=== PATIENT | male | born 1950 | race Caucasian/White ===

== ENCOUNTER → 2016-11-12 | Outpatient (CLI) | payer MEDICARE, BC ==
[2016-11-12 18:15] LABS: ANION GAP 8 MEQ/L (8-16); BLOOD UREA NITROGEN 14 MG/DL (7-18); CALCIUM LEVEL 8.4 MG/DL (8.8-10.2); CARBON DIOXIDE LEVEL 27 MEQ/L (21-32); CHLORIDE LEVEL 106 MEQ/L (98-107); CREATININE FOR GFR 0.97 MG/DL (0.70-1.30); GLOMERULAR FILTRATION RATE > 60.0 (>49); GLUCOSE, FASTING 148 MG/DL (80-110); POTASSIUM SERUM 4.3 MEQ/L (3.5-5.1); SODIUM LEVEL 141 MEQ/L (136-145)
== END ==
LOC: M LAB 15:49
PROVIDERS: ATTEND Ophthalmology
DX: H02.423 Myogenic ptosis of bilateral eyelids (principal); H02.832 Dermatochalasis of right lower eyelid; H02.835 Dermatochalasis of left lower eyelid; F17.200 Nicotine dependence, unspecified, uncomplicated

== ENCOUNTER 2018-08-29 15:01 | Outpatient (RCR) | payer MEDICARE, OTHER ==
--- NOTE | 2018-08-15 15:30 | CARECAPL ---
Assessment Account #s: Initial Assessment General Diagnoses: Stent, CHF (ef less than 35%) Date of event: Sep 13, 2017 Physician: RADHA LANE MD Date Entered Program: Aug 15, 2018 Risk strat for cardiac event: High Exercise Date: Aug 15, 2018 Assessment: Initial Assessment Exercise Prescription Plan to educate provide educations about cardiac risk factors and to provide a monitored exercise program to build endurance Modalities initiated: Treadmill (1.5/0.0 RPE 3 mts 2.15), Cardio-Strider (will add), Nustep (level 2, RPE 2.5 mts 2.70), Arm Aerometer (1.0 RPE 3.5 mts 2.00), Dumbells (will add), Recumbent Bike (will add) Frequency: 2-3 Duration (Minutes) 30-60 minutes total exercise a day. 8-10 work intervals in minutes. rest intervals in minutes. Functional Capacity Goal Sustained Metabolic Equivalent of a task (MET) goal of 4.75-5.0 for 15-20 minutes. Intensity: 3-Moderate Progression (METS) Increase by: 0.5 METS every: 2 sessions Angina with ex: No Target Heart Rate rest + 35-40 Resistance Training: Yes Reps: 6-8 Hypertension: Yes Hypertension controlled with: Medication Resting 136/71 Peak Exercise BP 140/80 Meds see below Medications Scheduled Ascorbic Acid (Vitamin C), 1 CAP PO BID, (Reported) Atorvastatin Calcium (Atorvastatin Calcium), 40 MG PO DAILY, (Reported) Budesonide/Formoterol (Symbicort 160-4.5 Mcg/Act), 2 PUFF INH BID, (Reported) Carvedilol (Carvedilol), 3.125 MG PO BID, (Reported) Cholecalciferol (Vitamin D-3), 5,000 UNIT PO DAILY, (Reported) Clopidogrel Bisulfate (Plavix), 75 MG PO DAILY, (Reported) Furosemide (Furosemide), 20 MG PO DAILY, (Reported) Multivitamins (Multivitamin Adults), 1 TAB PO DAILY, (Reported) Sacubitril/Valsartan (Entresto 24-26 mg), 1 TAB PO BID, (Reported) Spironolactone (Spironolactone), 25 MG PO DAILY, (Reported) Target Goals Individual exercise Rx (1) BP 140/90 or 130/80 if DM or CKD (1) Aerobic active 30+min 5 days per week (1) Nutrition Date: Aug 15, 2018 Assessment: Initial Assessment Lipids Total Cholesterol (140), High Density Lipids (HDL) (81), Low Density Lipids (LDL) (43), Triglycerides (79) Lipid- med/supplement atorvatatin Diabetes Diabetes: No Weight Management Weight (lbs): 200.2 Height (inches): 66 Waist Circumference (Inches): 46 BMI: 32.3 Weight goal: 175 Special Diet: low salt, mediteranean diet, low-fat Alcohol: none Diet Access Tool: Rate your plate Score: 69 Intervention Leaf Sucker Operator Consult: Yes Nurse/patient discussion: Yes Education Relate Diabetes in CAD, Eating Healthy Target goal LDL-C<100 if triglycerides are >200 Non-HDL-C should be <130 (1) LDL-C<70 for high risk patients (4) HbA1c<7% (1) BMI<25 Waist cir<40in M/<35in F (1) Education Date: Aug 15, 2018 Assessment: Initial Assessment Knowledge Test Score: 9 Quit: >6 months Tobacco Use Smokeless tobacco: No Intervention Referral to smoking cessation: No Individual education and couns: No Tobacco Adjunct: No Education class schedule given: Yes Attended education classes: Yes Education: CAD, Risk factors, med compliance, cardiac A&P, Angina S/S, Sexuality Target Goals Complete cessation of tobacco use (1). Psychosocial Date: Aug 15, 2018 Assessment: Initial Assessment Psych Test (Initial/Discharge) Tool Used: CESD Score: 7 Intervention Physician Consult: No Physician Referral: No Stress Management Class: Yes Uses Stress Management Skills: Yes Education Education: Coping Techniques, S/S depression Target Goal Assess presence or absence of depression using a valid screening tool (1). Maximize coping skills (2). Positive support system (2). Patient/Program Goal Preventative Medication: Yes Aspirin, Yes Clopidogrel, Yes Beta blockade, Yes Statin/OTR lipid Lowering Fall Risk Assess: No Provider Assessment Session Number: 1 Provider Assessment: Proceed with Barbara Silva RN Aug 15, 2018 15:30
[~2018-08-29 15:01] MED LIST: ATOR40TA75 PO; CARV3.12 PO; ENTR1TAB PO; FURO20TA2 PO; MULT1TAB10 PO; PLAV1TAB2 PO; SPIR-10 PO; SYMB16INH INH; VITA200038 PO; VITA500C24 PO
--- NOTE | 2018-09-06 13:53 | CARECAPL ---
Assessment Account #s: Re-Assessment I General Diagnoses: Stent, CHF (Ef less than 35%) Date of event: Sep 13, 2017 Physician: RADHA LANE MD Date Entered Program: Aug 15, 2018 Risk strat for cardiac event: High Exercise Date: Sep 06, 2018 Assessment: Re-Assessment I Exercise Prescription Modalities initiated: Treadmill, Nustep, Arm Aerometer, Dumbells, Recumbent Bike Frequency: 2-3 Duration (Minutes) minutes total exercise a day. work intervals in minutes. rest intervals in minutes. Functional Capacity Goal Sustained Metabolic Equivalent of a task (MET) goal of for minutes. Intensity: 3-Moderate Progression (METS) Increase by: METS every: sessions Angina with ex: No Resistance Training: Yes Weight (pounds): 2 Reps: 6-8 Medications Scheduled Ascorbic Acid (Vitamin C), 1 CAP PO BID, (Reported) Atorvastatin Calcium (Atorvastatin Calcium), 40 MG PO DAILY, (Reported) Budesonide/Formoterol (Symbicort 160-4.5 Mcg/Act), 2 PUFF INH BID, (Reported) Carvedilol (Carvedilol), 3.125 MG PO BID, (Reported) Cholecalciferol (Vitamin D-3), 5,000 UNIT PO DAILY, (Reported) Clopidogrel Bisulfate (Plavix), 75 MG PO DAILY, (Reported) Furosemide (Furosemide), 20 MG PO DAILY, (Reported) Multivitamins (Multivitamin Adults), 1 TAB PO DAILY, (Reported) Sacubitril/Valsartan (Entresto 24-26 mg), 1 TAB PO BID, (Reported) Spironolactone (Spironolactone), 25 MG PO DAILY, (Reported) Current BP 110/70 Med Change: No Target Goals Individual exercise Rx (1) BP 140/90 or 130/80 if DM or CKD (1) Aerobic active 30+min 5 days per week (1) Nutrition Date: Sep 06, 2018 Assessment: Re-Assessment I Med Change: No Current Weight (pounds): 200.2 Education Eating Healthy Target goal LDL-C<100 if triglycerides are >200 Non-HDL-C should be <130 (1) LDL-C<70 for high risk patients (4) HbA1c<7% (1) BMI<25 Waist cir<40in M/<35in F (1) Education Date: Sep 06, 2018 Assessment: Re-Assessment I Intervention Education: CAD, Risk factors, med compliance, cardiac A&P, Angina S/S, Sexuality Target Goals Complete cessation of tobacco use (1). Psychosocial Date: Sep 06, 2018 Assessment: Re-Assessment I Education Education: Coping Techniques, S/S depression, Relaxation Techniques Target Goal Assess presence or absence of depression using a valid screening tool (1). Maximize coping skills (2). Positive support system (2). Provider Assessment Session Number: 4 Provider Assessment: No changes Barbara Lozano RN Sep 06, 2018 13:53
== END 2018-09-03 ==
LOC: M CR 15:01
PROVIDERS: ATTEND Internal Medicine Cardiovascular Disease
DX: Z98.61 Coronary angioplasty status (principal)

== ENCOUNTER 2018-09-26 15:01 | Outpatient (RCR) | payer MEDICARE, OTHER ==
--- NOTE | 2018-10-03 14:47 | CARECAPL ---
Assessment Account #s: Re-Assessment II General Diagnoses: Stent, CHF Date of event: Sep 21, 2017 Physician: RADHA LANE MD Date Entered Program: Aug 15, 2018 Risk strat for cardiac event: High Exercise Assessment: Re-Assessment II Exercise Prescription Plan TO EDUCATE AND INCREASE ENDURANCE THROUGH MONITORED EXERCISE Modalities initiated: Treadmill (METS=2.30/RPE=4), Nustep (METS=3.1/RPE=3), Arm Aerometer (METS=2.8/RPE=3), Dumbells (3#/RPE=3.5), Recumbent Bike (METS=3.3/RPE=3) Frequency: 3 Duration (Minutes) 30-60 minutes total exercise a day. 10-15 work intervals in minutes. 5 MIN PRN rest intervals in minutes. Functional Capacity Goal Sustained Metabolic Equivalent of a task (MET) goal of 4.75-5.5 X 15-20 MINUTES. Intensity: 3-Moderate Progression (METS) Increase by: 0.5 METS every: 3-5 sessions TOLERATED Angina with ex: No Target Heart Rate +35-40 BETA SANTA THERAPY Resistance Training: Yes Weight (pounds): 3 Reps: 12-15 Hypertension: Yes Hypertension controlled with: Medication Resting 112/70 Peak Exercise BP 140/80 Medications Scheduled Ascorbic Acid (Vitamin C), 1 CAP PO BID, (Reported) Atorvastatin Calcium (Atorvastatin Calcium), 40 MG PO DAILY, (Reported) Budesonide/Formoterol (Symbicort 160-4.5 Mcg/Act), 2 PUFF INH BID, (Reported) Carvedilol (Carvedilol), 3.125 MG PO BID, (Reported) Cholecalciferol (Vitamin D-3), 5,000 UNIT PO DAILY, (Reported) Clopidogrel Bisulfate (Plavix), 75 MG PO DAILY, (Reported) Furosemide (Furosemide), 20 MG PO DAILY, (Reported) Multivitamins (Multivitamin Adults), 1 TAB PO DAILY, (Reported) Sacubitril/Valsartan (Entresto 24-26 mg), 1 TAB PO BID, (Reported) Spironolactone (Spironolactone), 25 MG PO DAILY, (Reported) Current BP 122/70 Med Change: No Intervention Home exercise: Type (WALKING, HAND WEIGHTS, LOCAL GYM), Frequency (3-5 DAYS / WEEK), Duration (30-60 MINUTES) Resistance Training: Yes Education: Self pulse, Ex safety, S/S to report, Low NA diet, BP medication, RPE Scale, Equipment orientation, warm up/cool down, Understand BP, Physical Active Target Goals Individual exercise Rx (1) BP 140/90 or 130/80 if DM or CKD (1) Aerobic active 30+min 5 days per week (1) Nutrition Date: Oct 03, 2018 Assessment: Re-Assessment II Lipid- med/supplement ATORVASTATIN Med Change: No Diabetes Diabetes: No Monitor Blood Sugar at home: No Medication Change: No Weight Management Weight (lbs): 200.2 Special Diet: low salt, low-fat Vitamin/Supplements: Multivitamin, Vitamin C, Vitamin D Target goal LDL-C<100 if triglycerides are >200 Non-HDL-C should be <130 (1) LDL-C<70 for high risk patients (4) HbA1c<7% (1) BMI<25 Waist cir<40in M/<35in F (1) Education Date: Oct 03, 2018 Assessment: Re-Assessment II Learning Barriers: ready Family Support: Yes Tobacco use: No Tobacco Use Smokeless tobacco: No Intervention Referral to smoking cessation: No Individual education and couns: No Tobacco Adjunct: No Education class schedule given: No Attended education classes: No Education: CAD, Risk factors, med compliance, cardiac A&P, Angina S/S, Sexuality Target Goals Complete cessation of tobacco use (1). Psychosocial Date: Oct 03, 2018 Assessment: Re-Assessment II Intervention Physician Consult: No Physician Referral: No Med Change: No Stress Management Class: No Uses Stress Management Skills: Yes Education Education: Coping Techniques, S/S depression, Relaxation Techniques Target Goal Assess presence or absence of depression using a valid screening tool (1). Maximize coping skills (2). Positive support system (2). Patient/Program Goal Preventative Medication: Yes Clopidogrel, Yes Beta blockade, Yes Statin/OTR lipid Lowering Fall Risk Assess: Yes Provider Assessment Session Number: 9 Provider Assessment: Proceed with rehab Demetrius Hernandez RN Oct 03, 2018 14:47
== END 2018-10-04 ==
LOC: M CR 15:01
PROVIDERS: ATTEND Internal Medicine Cardiovascular Disease
DX: Z98.61 Coronary angioplasty status (principal)

== ENCOUNTER 2018-10-31 14:00 | Outpatient (RCR) | payer MEDICARE, OTHER ==
--- NOTE | 2018-10-29 16:22 | CARECAPL ---
Assessment Account #s: Re-Assessment II General Diagnoses: Stent, CHF Date of event: Sep 21, 2018 Physician: RADHA LANE MD Date Entered Program: Aug 15, 2018 Risk strat for cardiac event: High Exercise Date: Oct 29, 2018 Assessment: Re-Assessment II Exercise Prescription Plan TO EDUCATE AND BUILD ENDURANCE THROUGH MONITORED EXERCISE Modalities initiated: Treadmill (METS=2.54/RPE=3.5), Nustep (METS=2.9/RPE=3), Arm Aerometer (METS=2.9/RPE=3), Dumbells (4#/RPE=3), Recumbent Bike (METS=3.5/RPE=3.5) Frequency: 3 Duration (Minutes) 30-60 minutes total exercise a day. 10-15 work intervals in minutes. 5 MIN PRN rest intervals in minutes. Functional Capacity Goal Sustained Metabolic Equivalent of a task (MET) goal of 4.75-5.5 for 15-20 minutes. Intensity: 3-Moderate Progression (METS) Increase by: 0.5 METS every: 5 sessions TOLERATED Angina with ex: No Target Heart Rate +35-40 BASED ON BETA SANTA THERAPY Resistance Training: Yes Weight (pounds): 4 Reps: 12-15 Hypertension: Yes Hypertension controlled with: Medication Resting 92/60 Peak Exercise BP 110/80 Medications Scheduled Ascorbic Acid (Vitamin C), 1 CAP PO BID, (Reported) Atorvastatin Calcium (Atorvastatin Calcium), 40 MG PO DAILY, (Reported) Budesonide/Formoterol (Symbicort 160-4.5 Mcg/Act), 2 PUFF INH BID, (Reported) Carvedilol (Carvedilol), 3.125 MG PO BID, (Reported) Cholecalciferol (Vitamin D-3), 5,000 UNIT PO DAILY, (Reported) Clopidogrel Bisulfate (Plavix), 75 MG PO DAILY, (Reported) Furosemide (Furosemide), 20 MG PO DAILY, (Reported) Multivitamins (Multivitamin Adults), 1 TAB PO DAILY, (Reported) Sacubitril/Valsartan (Entresto 24-26 mg), 1 TAB PO BID, (Reported) Spironolactone (Spironolactone), 25 MG PO DAILY, (Reported) Current BP 110/60 Med Change: No Intervention Home exercise: Type (WALKING, HAND WEIGHTS, LOCAL GYM), Frequency (3-5 TIMES PER WEEK), Duration (30-60 MINUTES) Resistance Training: Yes Education: Self pulse, Ex safety, S/S to report, Low NA diet, BP medication, RPE Scale, Equipment orientation, warm up/cool down, Understand BP, Physical Active Target Goals Individual exercise Rx (1) BP 140/90 or 130/80 if DM or CKD (1) Aerobic active 30+min 5 days per week (1) Nutrition Date: Oct 29, 2018 Assessment: Re-Assessment II Lipid- med/supplement ATORVASTATIN Med Change: No Diabetes Diabetes: No Monitor Blood Sugar at home: No Medication Change: No Weight Management Weight (lbs): 207.2 Special Diet: low salt, low-fat Vitamin/Supplements: Multivitamin, Vitamin C, Vitamin D Alcohol: none Current Weight (pounds): 207.2 Intervention Catering Attendant Consult: No Nurse/patient discussion: Yes Dietary Goals MAKE BETTER HEART HEALTHY CHOICES Diet Class: Yes Referral to Diabetes education: No Referral to lipid clinic: No Referral to weight mangement p: No Education Eating Healthy Target goal LDL-C<100 if triglycerides are >200 Non-HDL-C should be <130 (1) LDL-C<70 for high risk patients (4) HbA1c<7% (1) BMI<25 Waist cir<40in M/<35in F (1) Education Date: Oct 29, 2018 Assessment: Re-Assessment II Learning Barriers: ready Family Support: Yes Tobacco use: No Tobacco Use Smokeless tobacco: No Intervention Referral to smoking cessation: No Individual education and couns: No Tobacco Adjunct: No Education class schedule given: No Attended education classes: No Education: CAD, Risk factors, med compliance, cardiac A&P, Angina S/S, Sexuality Target Goals Complete cessation of tobacco use (1). Psychosocial Date: Oct 29, 2018 Assessment: Re-Assessment II Intervention Physician Consult: No Physician Referral: No Med Change: No Stress Management Class: No Uses Stress Management Skills: Yes Education Education: Coping Techniques, S/S depression, Relaxation Techniques Target Goal Assess presence or absence of depression using a valid screening tool (1). Maximize coping skills (2). Positive support system (2). Patient/Program Goal Preventative Medication: Yes Clopidogrel, Yes Beta blockade, Yes Statin/OTR lipid Lowering Fall Risk Assess: Yes (NOT A FALL RISK) Provider Assessment Session Number: 13 Provider Assessment: Proceed with rehab Demetrius Hernandez RN Oct 29, 2018 16:22
== END 2018-11-01 ==
LOC: M CR 14:00
PROVIDERS: ATTEND Internal Medicine Cardiovascular Disease
DX: Z98.61 Coronary angioplasty status (principal)

== ENCOUNTER 2018-11-07 10:45 | Outpatient (RCR) | payer MEDICARE, OTHER ==
--- NOTE | 2018-11-07 12:41 | CARECAPL ---
Assessment Account #s: Re-Assessment II (discharge assessment) General Diagnoses: Stent, CHF Date of event: Sep 21, 2018 Physician: RADHA LANE MD Date Entered Program: Aug 15, 2018 Risk strat for cardiac event: High Exercise Date: Nov 07, 2018 Assessment: Followup/Discharge Exercise Prescription Modalities initiated: Treadmill, Nustep, Arm Aerometer, Dumbells, Recumbent Bike Frequency: 2 Duration (Minutes) minutes total exercise a day. work intervals in minutes. rest intervals in minutes. Functional Capacity Goal Sustained Metabolic Equivalent of a task (MET) goal of for minutes. Intensity: 3-Moderate Progression (METS) Increase by: METS every: sessions Angina with ex: No Weight (pounds): 4 Reps: 8-12 Hypertension: Yes Hypertension controlled with: Diet Resting 112/70 Peak Exercise BP 136/68 Meds see below Medications Scheduled Ascorbic Acid (Vitamin C), 1 CAP PO BID, (Reported) Atorvastatin Calcium (Atorvastatin Calcium), 40 MG PO DAILY, (Reported) Budesonide/Formoterol (Symbicort 160-4.5 Mcg/Act), 2 PUFF INH BID, (Reported) Carvedilol (Carvedilol), 3.125 MG PO BID, (Reported) Cholecalciferol (Vitamin D-3), 5,000 UNIT PO DAILY, (Reported) Clopidogrel Bisulfate (Plavix), 75 MG PO DAILY, (Reported) Furosemide (Furosemide), 20 MG PO DAILY, (Reported) Multivitamins (Multivitamin Adults), 1 TAB PO DAILY, (Reported) Sacubitril/Valsartan (Entresto 24-26 mg), 1 TAB PO BID, (Reported) Spironolactone (Spironolactone), 25 MG PO DAILY, (Reported) Intervention Resistance Training: Yes Education Goals Met: Yes Target Goals Individual exercise Rx (1) BP 140/90 or 130/80 if DM or CKD (1) Aerobic active 30+min 5 days per week (1) Nutrition Date: Nov 07, 2018 Assessment: Followup/Discharge Med Change: No Diabetes Diabetes: No Medication Change: No Diet Access Tool: Rate your plate (did not complete) Current Weight (pounds): 205 Intervention Assistant Tennis Professional Consult: Yes Nurse/patient discussion: Yes Diet Class: Yes Education Eating Healthy Education Goals Met: Yes Target goal LDL-C<100 if triglycerides are >200 Non-HDL-C should be <130 (1) LDL-C<70 for high risk patients (4) HbA1c<7% (1) BMI<25 Waist cir<40in M/<35in F (1) Education Date: Nov 07, 2018 Assessment: Followup/Discharge Family Support: Yes Tobacco use: No Tobacco Use Smokeless tobacco: No Intervention Referral to smoking cessation: No Individual education and couns: No Tobacco Adjunct: No Education class schedule given: Yes Attended education classes: Yes Education: CAD, Risk factors, med compliance, cardiac A&P, Angina S/S, Sexuality Education Goals Met: Yes Target Goals Complete cessation of tobacco use (1). Psychosocial Date: Nov 07, 2018 Assessment: Followup/Discharge Psych Test (Initial/Discharge) Tool Used: CESD (did not complete) Intervention Physician Consult: No Physician Referral: No Med Change: No Stress Management Class: Yes Uses Stress Management Skills: Yes Education Education: Coping Techniques, S/S depression, Relaxation Techniques Education Goals Met: Yes Target Goal Assess presence or absence of depression using a valid screening tool (1). Maximize coping skills (2). Positive support system (2). Fall Risk Assess: No Provider Assessment Session Number: 17 Provider Assessment: No changes (discharge assessment) Barbara Lozano RN Nov 07, 2018 12:41
== END 2018-12-02 ==
LOC: M CR 10:45
PROVIDERS: ATTEND Internal Medicine Cardiovascular Disease
DX: Z98.61 Coronary angioplasty status (principal)

== ENCOUNTER 2018-11-14 13:49 | Outpatient (RCR) | payer MEDICARE, OTHER, SELFPAY | END 2018-12-02 | LOC: M CR 13:49 | PROVIDERS: ATTEND Internal Medicine Cardiovascular Disease | DX: Z98.61 Coronary angioplasty status (principal) ==